=== PATIENT | male | born 1975 | race Caucasian/White ===

== ENCOUNTER 2020-03-25 07:47 | Outpatient (CLI) | payer OTHER, SELFPAY ==
[2020-03-27 23:31] LABS: NIL 0.02 IU/mL; Quantiferon TB Plus, 1T NEGATIVE (NEGATIVE); TB1-NIL <0.00 IU/mL
== END 2020-03-25 07:48 | disposition home or self-care (01) ==
DX: Z79.899 Other long term (current) drug therapy (principal)
CPT/HCPCS: 36415; 86480

== ENCOUNTER 2020-06-09 09:00 | Emergency (ER) | payer OTHER, SELFPAY ==
[2020-06-09 09:06] VITALS: BP 130/90; PULSE 79; RESP 16; TEMP 36.6; O2SAT 100
--- NOTE | 2020-06-09 09:22 | ED.SKABFB ---
HPI - Skin/Abscess/Foreign Bdy General Chief complaint: Skin/Abscess/Foreign Body Stated complaint: rash Time Seen by Provider: 06/09/20 09:11 Source: patient and RN notes reviewed Mode of arrival: ambulatory Limitations: no limitations History of Present Illness HPI narrative: Patient presents today complaining of a rash to his right flank x1 week. States he is continuing to develop new lesions. Believes he has shingles. Denies any recent illness. He had been applying hydrocortisone a few times without much relief. Only reports mild pain. Patient does have psoriasis for which he takes monthly Taltz. complaint: rash Related Data Home Medications Medication Instructions Recorded Confirmed ixekizumab [Taltz Syringe] 80 mg SUBCUT ONCE 06/09/20 06/09/20 naproxen sodium [Aleve] 220 mg PO DAILY 06/09/20 06/09/20 Allergies Allergy/AdvReac Type Severity Reaction Status Date / Time Penicillins Allergy unsure Verified 06/09/20 09:03 Review of Systems Review of Systems: Narrative: CONSTITUTIONAL: Denies body aches, fever, chills, or sweats. EYES: Denies visual changes, redness, or discharge. ENT: Denies rhinorrhea, congestion, sore throat, or otalgia. CARDIOVASCULAR: Denies chest pain, palpitations, or edema. RESPIRATORY: Denies cough or dyspnea. GASTROINTESTINAL: Denies abdominal pain, nausea, vomiting, or diarrhea. GENITOURINARY: Denies dysuria or hematuria. SKIN: Denies itching, or wounds. + Rash to right flank MUSCULOSKELETAL: Denies back pain, joint pain, or myalgia. NEUROLOGIC: Denies headache, numbness, tingling, or weakness. PSYCH: Denies depression or anxiety. [facility] Past Medical History Medical History (Updated 06/09/20 @ 09:26 by Janet Zamudio, [facility], ) Psoriatic arthritis Comments At time of signature, I have reviewed and agree with nursing past medical, surgical, social and family history unless otherwise noted. Please see nursing chart for further information. There is no relevant family history pertinent to the presenting complaint Exam Narrative: Exam Narrative: GENERAL: Well-appearing, well-nourished, and in no acute distress. HEAD: Normocephalic, atraumatic. EYES: EOMI. No redness or drainage. Conjunctivae normal. ENT: Mucous membranes pink and moist. NECK: Normal AROM. CHEST: No respiratory distress. EXTREMITIES: Normal range of motion. No edema. SKIN: Warm, dry. Capillary refill normal. Normal skin turgor. Large erythematous patch of vesicular lesions to the right lateral abdomen/flank. Small patch of lesions measuring approximately 2 cm round, located more towards the midline. No signs of bacterial infection to include induration, fluctuance, purulent discharge. NEURO: No focal deficits. Alert and oriented x3. Gait steady. PSYCH: Normal affect. No signs of depression or anxiety. Course Vital Signs Vital signs: Vital Signs Temperature 97.8 F 06/09/20 09:06 Pulse Rate 79 06/09/20 09:06 Respiratory Rate 16 06/09/20 09:06 Blood Pressure 130/90 06/09/20 09:06 Pulse Oximetry 100 06/09/20 09:06 Temperature 97.8 F 06/09/20 09:06 Pulse Rate 79 06/09/20 09:06 Respiratory Rate 16 06/09/20 09:06 Blood Pressure 130/90 06/09/20 09:06 Pulse Oximetry 100 06/09/20 09:06 Reviewed. Pt has been instructed to follow up with his PCP regarding his elevated blood pressure today. MDM - Skin/Abscess/Foreign Bdy Differential Diagnosis Differential diagnosis: Likely abscess of skin or subcutaneous tissue, urticaria, herpes zoster, cellulitis, eczema, impetigo, contact dermatitis and other (Psoriasis) Critical Care Time Critical Care Time Critical Care Time: No Discharge Plan Discharge Clinical Impression: Shingles Qualifiers: Herpes zoster complications: without complications Qualified Code(s): B02.9 - Zoster without complications Patient Disposition: Home, Self-Care Condition: Stable Instructions: Shingles (ED) Additional Instructions
== END 2020-06-09 09:31 | disposition home or self-care (01) ==
PROVIDERS: Emergency Provider Nurse Practitioner
DX: B02.9 Zoster without complications (principal); L40.50 Arthropathic psoriasis, unspecified
CPT/HCPCS: 99213; G0463

== ENCOUNTER 2021-03-05 07:07 | Outpatient (CLI) | payer OTHER, SELFPAY ==
[2021-03-05 08:13] LABS: Basophils Absolute Auto 0.1 K/mm3 (0.0-0.1); Basophils Percent Auto 0.9 % (0.2-1.2); Eosinophils Absolute Auto 0.1 K/mm3 (0-0.3); Eosinophils Percent Auto 1.6 % (0-4.4); Hematocrit 41.4 % (42.0-52.0); Hemoglobin 13.7 g/dL (14.0-18.0); Immature Granulocyte Absolute 0.04 K/mm3 (0.00-0.031); Immature Granulocyte Percent A 0.7 % (0-0.5); Lymphocytes Absolute Auto 1.52 K/mm3 (0.9-3.2); Lymphocytes Percent Auto 27.6 % (18.3-44.2); Mean Corpuscular HGB Conc 33.1 g/dl (32-36); Mean Corpuscular Hemoglobin 31.6 pg (26-34); Mean Corpuscular Volume 95.4 fl (80-100); Mean Platelet Volume 9.4 fl (7.4-10.4); Monocytes Absolute Auto 0.4 K/mm3 (0.1-0.6); Monocytes Percent Auto 7.6 % (2.6-8.5); Neutrophils Absolute Auto 3.4 K/mm3 (1.3-6.7); Neutrophils Percent Auto 61.6 % (45.5-73.1); Platelet Count Result 182 k/mm3 (150-375); Red Blood Count 4.34 M/mm3 (4.6-6.20); Red Cell Distribution Width 13.2 % (11.5-14.5); White Blood Count 5.5 K/mm3 (4.5-10.0)
[2021-03-05 08:24] LABS: Alanine Aminotransferase 39 U/L (4-50); Albumin Level 4.2 g/dL (3.5-5.1); Alkaline Phosphatase 38 U/L (38-126); Anion Gap 5 mmol/L (8-16); Aspartate Amino Transferase 37 U/L (17-59); Bilirubin,Total 0.5 mg/dL (0.2-1.3); Blood Urea Nitrogen 12 mg/dL (9-20); Calcium 9.2 mg/dL (8.4-10.2); Carbon Dioxide 31 mmol/L (22-30); Chloride 103 mmol/L (98-107); Estimated Glomerular Filt Rate > 60; Glucose 88 mg/dL (75-110); Potassium 4.5 mmol/L (3.4-5.0); Sodium 139 mmol/L (137-145)
[2021-03-05 10:19] LABS: Hemoglobin A1C 5.1 % (<5.7)
[2021-03-05 15:36] LABS: Cholesterol 211 mg/dL (0-200); HDL Direct 54 mg/dL; Triglycerides 228 mg/dL (<150)
[2021-03-05 15:44] LABS: LDL Cholesterol Direct 94 mg/dL
[2021-03-09 12:51] LABS: NIL 0.04 IU/mL; Quantiferon TB Plus, 1T NEGATIVE (NEGATIVE); TB1-NIL 0.01 IU/mL; TB2-NIL 0.02 IU/mL
== END 2021-03-05 07:08 | disposition home or self-care (01) ==
LOC: ANHLAB 07:14
PROVIDERS: Visit Provider Nurse Practitioner Family
DX: L40.0 Psoriasis vulgaris (principal); Z79.899 Other long term (current) drug therapy
CPT/HCPCS: 36415; 80053; 80061; 83036; 85025; 86480

== ENCOUNTER 2021-06-22 06:48 | Outpatient (RCR) | payer OTHER, SELFPAY ==
[2021-06-22 07:35] LABS: Alanine Aminotransferase 34 U/L (4-50); Albumin Level 4.1 g/dL (3.5-5.1); Alkaline Phosphatase 38 U/L (38-126); Anion Gap 7 mmol/L (8-16); Aspartate Amino Transferase 33 U/L (17-59); Bilirubin,Total 0.5 mg/dL (0.2-1.3); Blood Urea Nitrogen 15 mg/dL (9-20); Calcium 9.1 mg/dL (8.4-10.2); Carbon Dioxide 27 mmol/L (22-30); Chloride 107 mmol/L (98-107); Estimated Glomerular Filt Rate > 60; Glucose 104 mg/dL (65-110); Potassium 4.6 mmol/L (3.4-5.0); Sodium 141 mmol/L (137-145)
[2021-06-22 08:10] LABS: Hematocrit 40.9 % (42.0-52.0); Hemoglobin 13.6 g/dL (14.0-18.0); Mean Corpuscular HGB Conc 33.3 g/dl (32-36); Mean Corpuscular Hemoglobin 32.2 pg (26-34); Mean Corpuscular Volume 96.7 fl (80-100); Mean Platelet Volume 9.8 fl (7.4-10.4); Platelet Count Result 200 k/mm3 (150-375); Red Blood Count 4.23 M/mm3 (4.6-6.20); Red Cell Distribution Width 13.5 % (11.5-14.5); White Blood Count 4.5 K/mm3 (4.5-10.0)
== END 2021-09-20 23:59 | disposition home or self-care (01) ==
LOC: ANHLAB 06:48
DX: L40.0 Psoriasis vulgaris (principal); Z79.899 Other long term (current) drug therapy
CPT/HCPCS: 36415; 80053; 85027